=== PATIENT | male | born 1975 | race African-American/Black ===

== ENCOUNTER 2017-07-20 14:22 | Inpatient (IN) | payer OTHER ==
[2017-07-20 15:54] VITALS: BMI 25.0
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
[2017-07-20] MEDS ORDERED: NICOTINE POLACRILEX 2 MG GUM BC PRN (18:10)
[2017-07-20] MEDS ORDERED: MAG HYDROX/AL HYDROX/SIMETH 30 ML UNIT-DOSE CUP PO PRN (18:10)
[2017-07-20] MEDS ORDERED: ACETAMINOPHEN 325 MG TABLET (FP) PO PRN (18:10)
[2017-07-20] MEDS ORDERED: MAGNESIUM HYDROX 2400MG/30ML ORAL SUSPENSION 30 ML CUP PO PRN (18:10)
[2017-07-20] MEDS ORDERED: guaiFENesin/D-METHORPHAN HB 10 ML UNIT-DOSE CUPS PO PRN (18:10)
[2017-07-20] MEDS ORDERED: MAGNESIUM CITRATE 300 ML BOTTLE PO PRN (18:10)
[2017-07-20] MEDS ORDERED: P-EPHED 60MG/TRIPROLIDI 2.5MG TABLET PO PRN (18:10)
[2017-07-20] MEDS ORDERED: LOPERAMIDE HCL 2 MG CAPSULE PO PRN (18:10)
[2017-07-20] MEDS ORDERED: MENTHOL/PHENOL 1 EACH UD MM PRN (18:10)
[2017-07-20] MEDS ORDERED: hydrOXYzine PAMOATE 50 MG CAPSULE (FP) PO PRN (18:10)
[2017-07-20] MEDS ORDERED: IBUPROFEN 400 MG TABLET (FP) PO PRN (18:10)
[2017-07-20] MEDS: THIAMINE HCL 100 MG TABLET (FP) PO SCH (21:49)
[2017-07-20] MEDS ORDERED: MELATONIN 5 MG TABLETS PO PRN (22:00)
[2017-07-20 23:15] LABS: URINE APPEARANCE CLEAR; URINE BILIRUBIN NEGATIVE (<2.0 mg/dL); URINE COLOR DKYELLOW; URINE GLUCOSE (UA) NEGATIVE (NEGATIVE); URINE KETONE NEGATIVE (NEGATIVE); URINE LEUK ESTERASE NEGATIVE (NEGATIVE); URINE NITRITE NEGATIVE (NEGATIVE); URINE PROTEIN NEGATIVE (NEGATIVE)
[2017-07-20] MEDS ORDERED: TUBERCULIN PPD 5 TU/0.1ML VIAL ID ONE (23:57)
[2017-07-21 10:03] LABS: HEMATOCRIT 40.1 % (35.4-49); HEMOGLOBIN 13.4 GM/dL (11.7-16.9); MCH 30.1 pg (25.7-33.7); MCHC 33.5 g/dl (32.0-35.9); MEAN CELL VOLUME 89.7 fl (80-96); PLATELET COUNT 235 K/MM3 (134-434); RBC 4.47 M/mm3 (4.00-5.60); RDW 14.8 % (11.9-15.9); WHITE BLOOD COUNT 4.9 K/mm3 (4.0-10.0)
[2017-07-21 10:13] LABS: CHLORIDE 107 mmol/L (98-107); SODIUM 140 mmol/L (136-145)
[2017-07-21] MEDS: PRENATAL VITAMINS W/ FOLIC ACID TABLET (FP) PO SCH (10:19)
[2017-07-21] MEDS: NICOTINE 14 MG/24 HOURS TOPICAL PATCH TD SCH (10:20)
[2017-07-21 10:36] LABS: ALBUMIN 3.1 g/dl (3.4-5.0); ALK PHOS 46 U/L (45-117); ANION GAP 9 (8-16); BILIRUBIN,TOTAL 0.3 mg/dL (0.2-1.0); BLOOD UREA NITROGEN 15 mg/dL (7-18); CALCIUM 8.4 mg/dL (8.5-10.1); CO2 24 mmol/L (21-32); CREATININE 1.1 mg/dL (0.7-1.3); GLUCOSE,RANDOM 82 mg/dL (74-106); SGOT/AST 18 U/L (15-37); SGPT/ALT 23 U/L (12-78); TOT PROT 5.8 g/dl (6.4-8.2)
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
--- NOTE | 2017-07-21 16:12 | EKG ---
Test Reason : Blood Pressure : / mmHG Vent. Rate : 062 BPM Atrial Rate : 062 BPM P-R Int : 142 ms QRS Dur : 088 ms QT Int : 412 ms P-R-T Axes : 055 045 045 degrees QTc Int : 418 ms NORMAL SINUS RHYTHM NORMAL ECG NO PREVIOUS ECGS AVAILABLE Confirmed by BIB LOONEY MD ([id number]) on 07/21/2017 4:11:51 PM Referred By: Ignacio HANNON Confirmed By:BIB LOONEY MD
[2017-07-21] MEDS: THIAMINE HCL 100 MG TABLET (FP) PO SCH (21:36)
[2017-07-21] MEDS: QUEtiapine FUMARATE 100 MG TABLET (FP) PO SCH (21:36)
[2017-07-22] MEDS: NICOTINE 14 MG/24 HOURS TOPICAL PATCH TD SCH (10:07)
[2017-07-22] MEDS: PRENATAL VITAMINS W/ FOLIC ACID TABLET (FP) PO SCH (10:07)
--- NOTE | 2017-07-22 14:10 | PN ---
[facility] Progress Note Note: Patient presents with c/o cold sweats, tiredness and headache. Vital Signs Temperature 97.8 F 07/22/17 06:48 Pulse Rate 100 H 07/22/17 06:48 Respiratory Rate 18 07/22/17 06:48 Blood Pressure 141/80 07/22/17 06:48 O2 Sat by Pulse Oximetry (%) Laboratory Tests 07/20/17 07/21/17 07/21/17 Unknown 07:00 07:00 WBC 4.9 RBC 4.47 Hgb 13.4 Hct 40.1 MCV 89.7 MCH 30.1 MCHC 33.5 RDW 14.8 Plt Count 235 MPV 9.0 Sodium 140 Potassium 4.0 Chloride 107 Carbon Dioxide 24 Anion Gap 9 BUN 15 Creatinine 1.1 Creat Clearance w eGFR > 60 Random Glucose 82 Calcium 8.4 L Total Bilirubin 0.3 AST 18 ALT 23 Alkaline Phosphatase 46 Total Protein 5.8 L Albumin 3.1 L Urine Color Dkyellow Urine Appearance Clear Urine pH 5.0 Ur Specific [place] 1.032 Urine Protein Negative Urine Glucose (UA) Negative Urine Ketones Negative Urine Blood Negative Urine Nitrite Negative Urine Bilirubin Negative Urine Urobilinogen 2.0 Ur Leukocyte Esterase Negative RPR Titer Hep C Ab Diagnostic Liver Fibrosis Interp HIV 1&2 Antibody Screen HIV P24 Antigen 07/21/17 07/21/17 07/21/17 07:00 07:00 07:00 WBC RBC Hgb Hct MCV MCH MCHC RDW Plt Count MPV Sodium Potassium Chloride Carbon Dioxide Anion Gap BUN Creatinine Creat Clearance w eGFR Random Glucose Calcium Total Bilirubin AST ALT Alkaline Phosphatase Total Protein Albumin Urine Color Urine Appearance Urine pH Ur Specific [place] Urine Protein Urine Glucose (UA) Urine Ketones Urine Blood Urine Nitrite Urine Bilirubin Urine Urobilinogen Ur Leukocyte Esterase RPR Titer Nonreactive Hep C Ab Diagnostic <0.1 Liver Fibrosis Interp HIV 1&2 Antibody Screen Negative HIV P24 Antigen Negative Obj: general: alert and oriented x 3. In no acute distress. Ambulating within unit. In no acute distress. Skin warm and dry. Intact Ext: no edema A/P withdrawal syndrome continue supportive medical management increase oral fluids continue to monitor clinically
[2017-07-22] MEDS: QUEtiapine FUMARATE 100 MG TABLET (FP) PO SCH (21:27)
[2017-07-22] MEDS: THIAMINE HCL 100 MG TABLET (FP) PO SCH (21:27)
[2017-07-23] MEDS: PRENATAL VITAMINS W/ FOLIC ACID TABLET (FP) PO SCH (09:55)
[2017-07-23] MEDS: NICOTINE 14 MG/24 HOURS TOPICAL PATCH TD SCH (09:56)
[2017-07-23] MEDS: QUEtiapine FUMARATE 100 MG TABLET (FP) PO SCH (21:54)
[2017-07-23] MEDS: THIAMINE HCL 100 MG TABLET (FP) PO SCH (21:54)
[2017-07-24 07:09] VITALS: BP 131/93; PULSE 82; TEMP 98.1
[2017-07-24] MEDS: PRENATAL VITAMINS W/ FOLIC ACID TABLET (FP) PO SCH (09:57)
[2017-07-24] MEDS: NICOTINE 14 MG/24 HOURS TOPICAL PATCH TD SCH (09:57)
== END 2017-07-24 10:45 | disposition left against medical advice (07) | DRG 770 ==
LOC: YASAS 14:22 → Y5N 18:35
PROVIDERS: ADMIT Psychiatry & Neurology Psychiatry; ATTEND Psychiatry & Neurology Psychiatry
PROC: HZ42ZZZ Group Counseling for Substance Abuse Treatment, Cognitive-Behavioral (ICD-10-PCS; principal; 2017-07-20)
DX: F11.20 Opioid dependence, uncomplicated (principal); F14.20 Cocaine dependence, uncomplicated; F15.20 Other stimulant dependence, uncomplicated; F17.210 Nicotine dependence, cigarettes, uncomplicated; F31.89 Other bipolar disorder; F43.10 Post-traumatic stress disorder, unspecified; J45.909 Unspecified asthma, uncomplicated; K42.9 Umbilical hernia without obstruction or gangrene; M12.9 Arthropathy, unspecified; R63.4 Abnormal weight loss; Z68.25 Body mass index [BMI] 25.0-25.9, adult; Z91.5 Personal history of self-harm; Z86.19 Personal history of other infectious and parasitic diseases; Z87.438 Personal history of other diseases of male genital organs
CPT/HCPCS: 36415; 80053; 81003; 85027; 86593; 87389; 93005; 93010

== ENCOUNTER 2018-05-08 13:17 | Inpatient (IN) | payer OTHER ==
[2018-05-08 14:43] VITALS: BMI 28.3
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
[2018-05-08] MEDS ORDERED: MAGNESIUM HYDROX 2400MG/30ML ORAL SUSPENSION 30 ML CUP PO PRN (18:30)
[2018-05-08] MEDS ORDERED: IBUPROFEN 400 MG TABLET (FP) PO PRN (18:30)
[2018-05-08] MEDS ORDERED: chlordiazePOXIDE HCL 25 MG CAPSULE PO PRN (18:30)
[2018-05-08] MEDS ORDERED: LOPERAMIDE HCL 2 MG CAPSULE PO PRN (18:30)
[2018-05-08] MEDS ORDERED: chlordiazePOXIDE HCL 25 MG CAPSULE PO ONE (18:30)
[2018-05-08] MEDS ORDERED: MAGNESIUM CITRATE 300 ML BOTTLE PO PRN (18:30)
[2018-05-08] MEDS ORDERED: MENTHOL/PHENOL 1 EACH UD MM PRN (18:30)
[2018-05-08] MEDS ORDERED: ACETAMINOPHEN 325 MG TABLET (FP) PO PRN (18:30)
[2018-05-08] MEDS ORDERED: MAG HYDROX/AL HYDROX/SIMETH 30 ML UNIT-DOSE CUP PO PRN (18:30)
[2018-05-08] MEDS ORDERED: ALBUTEROL SO4 0.083% IH SOL 2.5 MG/3 ML VIAL.NEB. NEB PRN (20:26)
[2018-05-08] MEDS: NICOTINE POLACRILEX 4 MG GUM BC PRN (20:49)
[2018-05-08] MEDS ORDERED: MELATONIN 5 MG TABLETS PO PRN ×2 (22:00)
[2018-05-08] MEDS: THIAMINE HCL 100 MG TABLET (FP) PO SCH (22:07)
[2018-05-08] MEDS: chlordiazePOXIDE HCL 25 MG CAPSULE PO SCH (22:08)
[2018-05-08] MEDS: TOLNAFTATE 1% CREAM 15 GM TUBE TP SCH (22:09)
[2018-05-09] MEDS: chlordiazePOXIDE HCL 25 MG CAPSULE PO SCH ×4 (06:43→22:31)
[2018-05-09] MEDS: NICOTINE 21 MG/24 HOURS TOPICAL PATCH TD SCH (10:18)
[2018-05-09] MEDS: TOLNAFTATE 1% CREAM 15 GM TUBE TP SCH ×2 (10:18→23:32)
[2018-05-09] MEDS: PRENATAL VITAMINS W/ FOLIC ACID TABLET (FP) PO SCH (10:18)
[2018-05-09] MEDS ORDERED: CYCLOBENZAPRINE HCL 10 MG TABLET (FP) PO PRN (11:55)
[2018-05-09 12:35] LABS: HEMATOCRIT 41.1 % (35.4-49); HEMOGLOBIN 13.8 GM/dL (11.7-16.9); MCHC 33.6 g/dl (32.0-35.9); MEAN CELL VOLUME 89.3 fl (80-96); MEAN PLT VOLUME 8.3 fl (7.5-11.1); PLATELET COUNT 264 K/MM3 (134-434); RDW 15.6 % (11.9-15.9); WHITE BLOOD COUNT 5.2 K/mm3 (4.0-10.0)
[2018-05-09 12:44] LABS: ALBUMIN 3.4 g/dl (3.4-5.0); ALK PHOS 56 U/L (45-117); ANION GAP 7 MMOL/L (8-16); BILIRUBIN,TOTAL 0.2 mg/dL (0.2-1); BLOOD UREA NITROGEN 23 mg/dL (7-18); CALCIUM 8.6 mg/dL (8.5-10.1); CHLORIDE 105 mmol/L (98-107); CO2 27 mmol/L (21-32); CREATININE 1.2 mg/dL (0.55-1.3); GLUCOSE,RANDOM 102 mg/dL (74-106); POTASSIUM 3.9 mmol/L (3.5-5.1); SGOT/AST 22 U/L (15-37); SGPT/ALT 29 U/L (13-61); SODIUM 139 mmol/L (136-145); TOT PROT 6.5 g/dl (6.4-8.2)
[2018-05-09 12:47] LABS: URINE APPEARANCE CLEAR; URINE BILIRUBIN NEGATIVE (<2.0 mg/dL); URINE COLOR YELLOW; URINE GLUCOSE (UA) NEGATIVE (NEGATIVE); URINE KETONE NEGATIVE (NEGATIVE); URINE LEUK ESTERASE TRACE (NEGATIVE); URINE NITRITE NEGATIVE (NEGATIVE); URINE PROTEIN NEGATIVE (NEGATIVE)
[2018-05-09 13:13] LABS: EPI CELLS RARE /HPF (FEW); URINE MUCUS RARE
--- NOTE | 2018-05-09 13:18 | PN ---
S CIWA - CIWA Score Nausea/Vomitin-No Nausea/No Vomiting Muscle Tremors: 3 Anxiety: 1-Mildly Anxious Agitation: 0-Normal Activity Paroxysmal Sweats: 3 Orientation: 2-Disoriented Date<2 days Tacttile Disturbances: 2-Mild Itch/Numbness/Burn Auditory Disturbances: 0-None Visual Disturbances: 0-None Headache: 3-Moderate CIWA-Ar Total Score: 14 S Progress Note (SOAP) Subjective: Tremors, H/A, Body Aches, Sweating, Interrupted Sleep. Objective: PATIENT A & O X 2 (UNCERTAIN ABOUT CURRENT DAY / DATE). PATIENT OBSERVED AMBULATING ON UNIT. IN NO ACUTE DISTRESS. 05/09/18 13:17 Vital Signs Temperature 98.1 F 05/09/18 09:59 Pulse Rate 86 05/09/18 09:59 Respiratory Rate 18 05/09/18 09:59 Blood Pressure 121/60 05/09/18 09:59 O2 Sat by Pulse Oximetry (%) Laboratory Tests 05/09/18 05/09/18 05/09/18 07:00 07:00 07:00 WBC 5.2 RBC 4.60 Hgb 13.8 Hct 41.1 MCV 89.3 MCH 30.0 MCHC 33.6 RDW 15.6 Plt Count 264 MPV 8.3 Sodium 139 Potassium 3.9 Chloride 105 Carbon Dioxide 27 Anion Gap 7 L BUN 23 H Creatinine 1.2 Creat Clearance w eGFR > 60 Random Glucose 102 Calcium 8.6 Total Bilirubin 0.2 AST 22 ALT 29 Alkaline Phosphatase 56 Total Protein 6.5 Albumin 3.4 Urine Color Urine Appearance Urine pH Ur Specific [place] Urine Protein Urine Glucose (UA) Urine Ketones Urine Blood Urine Nitrite Urine Bilirubin Urine Urobilinogen Ur Leukocyte Esterase Urine WBC (Auto) Urine RBC (Auto) Ur Epithelial Cells Urine Mucus RPR Titer HIV 1&2 Antibody Screen Negative HIV P24 Antigen Negative 05/09/18 05/09/18 07:00 09:30 WBC RBC Hgb Hct MCV MCH MCHC RDW Plt Count MPV Sodium Potassium Chloride Carbon Dioxide Anion Gap BUN Creatinine Creat Clearance w eGFR Random Glucose Calcium Total Bilirubin AST ALT Alkaline Phosphatase Total Protein Albumin Urine Color Yellow Urine Appearance Clear Urine pH 6.0 Ur Specific [place] 1.031 Urine Protein Negative Urine Glucose (UA) Negative Urine Ketones Negative Urine Blood Negative Urine Nitrite Negative Urine Bilirubin Negative Urine Urobilinogen 2.0 Ur Leukocyte Esterase Trace Urine WBC (Auto) 4 Urine RBC (Auto) 1 Ur Epithelial Cells Rare Urine Mucus Rare RPR Titer Nonreactive HIV 1&2 Antibody Screen HIV P24 Antigen LABS NOTED. Assessment: 05/09/18 13:17 WITHDRAWAL SYMPTOMS. Plan: CONTINUE DETOX. INCREASE DAILY PO FLUID INTAKE.
[2018-05-09] MEDS: NICOTINE POLACRILEX 4 MG GUM BC PRN ×2 (17:32→22:32)
[2018-05-09] MEDS: THIAMINE HCL 100 MG TABLET (FP) PO SCH (22:31)
[2018-05-10] MEDS: chlordiazePOXIDE HCL 25 MG CAPSULE PO SCH ×3 (06:52→18:54)
[2018-05-10] MEDS: NICOTINE 21 MG/24 HOURS TOPICAL PATCH TD SCH (10:24)
[2018-05-10] MEDS: TOLNAFTATE 1% CREAM 15 GM TUBE TP SCH ×2 (10:25→23:20)
[2018-05-10] MEDS: PRENATAL VITAMINS W/ FOLIC ACID TABLET (FP) PO SCH (10:25)
[2018-05-10] MEDS: NICOTINE POLACRILEX 4 MG GUM BC PRN ×3 (10:26→22:20)
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
[2018-05-10] MEDS: chlordiazePOXIDE 5 MG CAPSULE PO SCH (22:19)
[2018-05-10] MEDS: THIAMINE HCL 100 MG TABLET (FP) PO SCH (22:20)
[2018-05-10] MEDS: DOCUSATE SODIUM 100 MG CAPSULE (FP) PO SCH (22:20)
[2018-05-11] MEDS: DOCUSATE SODIUM 100 MG CAPSULE (FP) PO SCH ×2 (06:10→14:17)
[2018-05-11] MEDS: chlordiazePOXIDE 5 MG CAPSULE PO SCH ×3 (06:10→17:35)
[2018-05-11] MEDS: PRENATAL VITAMINS W/ FOLIC ACID TABLET (FP) PO SCH (10:17)
[2018-05-11] MEDS: NICOTINE POLACRILEX 4 MG GUM BC PRN (10:17)
[2018-05-11] MEDS: NICOTINE 21 MG/24 HOURS TOPICAL PATCH TD SCH (10:17)
[2018-05-11] MEDS: TOLNAFTATE 1% CREAM 15 GM TUBE TP SCH (10:17)
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
[2018-05-11 13:16] VITALS: BP 133/83; PULSE 39; TEMP 97.3
--- NOTE | 2018-05-11 13:43 | PN ---
[facility] Progress Note (SOAP) Subjective: Sweating, Body Aches. Objective: PATIENT A & O X 3, OBSERVED AMBULATING ON UNIT. IN NO ACUTE DISTRESS. 05/11/18 13:44 Vital Signs Temperature 97.3 F L 05/11/18 13:15 Pulse Rate 39 L 05/11/18 13:15 Respiratory Rate 18 05/11/18 13:15 Blood Pressure 133/83 05/11/18 13:15 O2 Sat by Pulse Oximetry (%) Laboratory Tests 05/09/18 05/09/18 05/09/18 07:00 07:00 07:00 WBC 5.2 RBC 4.60 Hgb 13.8 Hct 41.1 MCV 89.3 MCH 30.0 MCHC 33.6 RDW 15.6 Plt Count 264 MPV 8.3 Sodium 139 Potassium 3.9 Chloride 105 Carbon Dioxide 27 Anion Gap 7 L BUN 23 H Creatinine 1.2 Creat Clearance w eGFR > 60 Random Glucose 102 Calcium 8.6 Total Bilirubin 0.2 AST 22 ALT 29 Alkaline Phosphatase 56 Total Protein 6.5 Albumin 3.4 Urine Color Urine Appearance Urine pH Ur Specific [place] Urine Protein Urine Glucose (UA) Urine Ketones Urine Blood Urine Nitrite Urine Bilirubin Urine Urobilinogen Ur Leukocyte Esterase Urine WBC (Auto) Urine RBC (Auto) Ur Epithelial Cells Urine Mucus RPR Titer HIV 1&2 Antibody Screen Negative HIV P24 Antigen Negative 05/09/18 05/09/18 07:00 09:30 WBC RBC Hgb Hct MCV MCH MCHC RDW Plt Count MPV Sodium Potassium Chloride Carbon Dioxide Anion Gap BUN Creatinine Creat Clearance w eGFR Random Glucose Calcium Total Bilirubin AST ALT Alkaline Phosphatase Total Protein Albumin Urine Color Yellow Urine Appearance Clear Urine pH 6.0 Ur Specific [place] 1.031 Urine Protein Negative Urine Glucose (UA) Negative Urine Ketones Negative Urine Blood Negative Urine Nitrite Negative Urine Bilirubin Negative Urine Urobilinogen 2.0 Ur Leukocyte Esterase Trace Urine WBC (Auto) 4 Urine RBC (Auto) 1 Ur Epithelial Cells Rare Urine Mucus Rare RPR Titer Nonreactive HIV 1&2 Antibody Screen HIV P24 Antigen LABS NOTED. Assessment: 05/11/18 13:44 WITHDRAWAL SYMPTOMS. Plan: CONTINUE DETOX. PATIENT TO BE SENT VIA AMBULANCE TO [facility] FOR REPORT OF BLOOD IN STOOL. SEE FOLLOWING [facility] PROGRESS NOTE.
--- NOTE | 2018-05-11 13:49 | PN ---
[facility] Progress Note Note: PATIENT REPORTS CARRIE THE HAS NOTICED APPEARANCE OF BLOOD (BRIGHT RED) BLOOD IN STOOL X APPROX. 1 WEEK. PATIENT HAD REPORTED THIS OCCURRENCE TO BUSINESS INVESTOR YESTERDAY AND BUSINESS INVESTOR OFFERED PATIENT OPPORTUNITY TO BE TAKEN VIA AMBULANCE TO [facility] YESTERDAY FOR FURTHER MEDICAL EVALUATION. HOWEVER, PATIENT DECLINED TO DO SO AT THAT TIME, NOTING THAT HE WOULD FOLLOW-UP WITH QUALITY CONTROL MANAGER DR. Elvia BIRD ([place], [place]) AFTER DISCHARGE FROM DETOX UNIT FOR FURTHER MEDICAL EVALUATION. WHEN ASKED ABOUT GOING TO ER AGAIN TODAY, PATIENT RESPONDED THAT HE IS WILLING TO GO FOR MEDICAL EVALUATION TODAY. PATIENT ALSO REPORTS FEELING OF "SORENESS" CONCENTRATED IN LOWER RIGHT FLANK AREA, JUST INFERIOR TO RIGHT RIBCAGE. ACCORDING TO PATIENT, SORENESS IS 7/10 ON PAIN SCALE AND IS GENERALLY MORE PRONOUNCED IN AM AND TENDS TO SUBSIDE DAY GOERS ON. PATIENT ALSO REPORTS THAT HE SOMETIMES FEELS IF HE HAS TO STRAIN TO HAVE A BOWEL MOVEMENT. PATIENT REPORTS THAT SIMILAR SET OF SYMPTOMS HAS OCCURRED IN THE PAST AND THAT THE SYMPTOMS GRADUALLY RESOLVED OIN THEIR OWN WITHOUT ANY MEDICAL INTERVENTION. NO SWELLING, ERYTHEMA, WOUNDS, DISCOLORATION, OR UNUSUAL DISCHARGE NOTED IN LOWER RIGHT ABDOMINAL / LOWER RIBCAGE AREAS. NO TENDERNESS ELICITED UPON PALPATION OF LOWER RIGHT ABDOMINAL / LOWER RIBCAGE AREAS. ANEMIA NOT NOTED ON DETOX ADMISSION CBC. REPORT GIVEN TO DR. GARCIA AT [facility]. PATIENT TO BE TAKEN VIA AMBULANCE TO [facility] FOR FURTHER MEDICAL EVALUATION. Griffin SHARP NP
[2018-05-11] MEDS ORDERED: QUEtiapine FUMARATE 50 MG TABLET PO SCH (22:00)
--- NOTE | 2018-05-11 22:03 | PN ---
[facility] Progress Note Note: RETURNS FROM HOSPITAL AFTR BEING CLEARED FOR A COMPLAINT EARLIER OF RECTAL BLEEDING. CLIENT REFUSED EXAM WHILE THERE BUT H/H WAS STABLE. HE NOW RETURNS AND IS REQUESTING TO SIGN OUT AMA. HE DOES NOT WANT TO DISCUSS HIS REASON. HE STATES " I JUST DONT WANT TO BE HERE ANY LONGER" . ALL ATTEMPTS TO ENCOURAGE CLIENT TO CONTINUE TREAT WAS TO NO AVAIL. RISKS INVOLVED IN ABRUPTING TXMENT DISCUSSED WITH CLIENT TO INCLUDE SEIZURE AND . CLIENT WAS VERY DISMISSIVE OF THE PEGGER BUT STATED "YEAH I KNOW ALL THAT, I JUST WANT MY STUFF" CLIENT IS A/O X3 NAD, SIGNED OUT AMA.
[2018-05-11] MEDS ORDERED: chlordiazePOXIDE HCL 10 MG CAPSULE PO SCH (23:00)
--- NOTE | 2018-05-12 08:12 | DS ---
[facility] Detox Discharge Summary Admission Date: 05/08/18 Discharge Date: 05/11/18 - History Present History: Alcohol Dependence, Cannabis Dependence, Cocaine Dependence, Sedative Dependence Additional Comments: DURING ADMISSION STAY DX: TINEA PEDIS RECTAL BLEEDING (CHRONIC). TRANSFERRED TO [facility] - MEDICALLY CLEARED AND RETURNED TO [facility] FOR CONTINUATION OF TXMENT. Pertinent Past History: NICOTINE DEP ASTHMA PTSD - Physical Exam Results Vital Signs: Vital Signs Temperature 97.3 F L 05/11/18 13:15 Pulse Rate 39 L 05/11/18 13:15 Respiratory Rate 18 05/11/18 13:15 Blood Pressure 133/83 05/11/18 13:15 O2 Sat by Pulse Oximetry (%) Pertinent Admission Physical Exam Findings: WITHDRAWAL SX'S Laboratory Tests 05/09/18 05/09/18 05/09/18 07:00 07:00 07:00 WBC 5.2 RBC 4.60 Hgb 13.8 Hct 41.1 MCV 89.3 MCH 30.0 MCHC 33.6 RDW 15.6 Plt Count 264 MPV 8.3 Sodium 139 Potassium 3.9 Chloride 105 Carbon Dioxide 27 Anion Gap 7 L BUN 23 H Creatinine 1.2 Creat Clearance w eGFR > 60 Random Glucose 102 Calcium 8.6 Total Bilirubin 0.2 AST 22 ALT 29 Alkaline Phosphatase 56 Total Protein 6.5 Albumin 3.4 Urine Color Urine Appearance Urine pH Ur Specific [place] Urine Protein Urine Glucose (UA) Urine Ketones Urine Blood Urine Nitrite Urine Bilirubin Urine Urobilinogen Ur Leukocyte Esterase Urine WBC (Auto) Urine RBC (Auto) Ur Epithelial Cells Urine Mucus RPR Titer HIV 1&2 Antibody Screen Negative HIV P24 Antigen Negative 05/09/18 05/09/18 07:00 09:30 WBC RBC Hgb Hct MCV MCH MCHC RDW Plt Count MPV Sodium Potassium Chloride Carbon Dioxide Anion Gap BUN Creatinine Creat Clearance w eGFR Random Glucose Calcium Total Bilirubin AST ALT Alkaline Phosphatase Total Protein Albumin Urine Color Yellow Urine Appearance Clear Urine pH 6.0 Ur Specific [place] 1.031 Urine Protein Negative Urine Glucose (UA) Negative Urine Ketones Negative Urine Blood Negative Urine Nitrite Negative Urine Bilirubin Negative Urine Urobilinogen 2.0 Ur Leukocyte Esterase Trace Urine WBC (Auto) 4 Urine RBC (Auto) 1 Ur Epithelial Cells Rare Urine Mucus Rare RPR Titer Nonreactive HIV 1&2 Antibody Screen HIV P24 Antigen - Treatment Hospital Course: Discharged Condition Good Patient has Accepted a Rehab Referral to: DECLINED ALL REFERRALS - Medication Discharge Medications: Ambulatory Orders NK [No Known Home Medication] 07/20/17 - Diagnosis (1) Alcohol dependence with uncomplicated withdrawal Status: Acute (2) Rectal bleed Status: Acute (3) Sedative, hypnotic or anxiolytic dependence with withdrawal, uncomplicated Status: Acute (4) Tinea pedis Status: Acute Qualifiers: Laterality: bilateral Qualified Code(s): B35.3 - Tinea pedis (5) Asthma Status: Chronic Qualifiers: Asthma severity: mild Asthma persistence: unspecified Asthma complication type: unspecified Qualified Code(s): J45.909 - Unspecified asthma , uncomplicated (6) Cannabis dependence, uncomplicated Status: Chronic (7) Cocaine dependence Status: Chronic Qualifiers: Substance use status: uncomplicated Qualified Code(s): F14.20 - Cocaine dependence, uncomplicated (8) History of asthma Status: Chronic (9) Mood disorder Status: Chronic (10) Nicotine dependence Status: Chronic Qualifiers: Nicotine product type: cigarettes Substance use status: uncomplicated Qualified Code(s): F17.210 - Nicotine dependence, cigarettes, uncomplicated (11) Opioid use disorder, moderate, in early remission, dependence Status: Chronic (12) PTSD (post-traumatic stress disorder) Status: Chronic - AMA Did Patient Leave Against Medical Advice: Yes
== END 2018-05-11 22:21 | disposition left against medical advice (07) | DRG 770 ==
LOC: YASAS 13:17 → Y6N 17:23
PROVIDERS: ADMIT Surgery; ATTEND Surgery
PROC: HZ2ZZZZ Detoxification Services for Substance Abuse Treatment (ICD-10-PCS; principal; 2018-05-08)
DX: F10.230 Alcohol dependence with withdrawal, uncomplicated (principal); F13.230 Sedative, hypnotic or anxiolytic dependence with withdrawal, uncomplicated; F14.20 Cocaine dependence, uncomplicated; F12.20 Cannabis dependence, uncomplicated; F11.21 Opioid dependence, in remission; F17.210 Nicotine dependence, cigarettes, uncomplicated; F31.9 Bipolar disorder, unspecified; F43.10 Post-traumatic stress disorder, unspecified; F39 Unspecified mood [affective] disorder; J45.909 Unspecified asthma, uncomplicated; B35.3 Tinea pedis; K62.5 Hemorrhage of anus and rectum; Z91.013 Allergy to seafood; Z88.8 Allergy status to other drugs, medicaments and biological substances; Z91.5 Personal history of self-harm
CPT/HCPCS: 36415; 80053; 81003; 81015; 85027; 86593; 87389

== ENCOUNTER 2018-05-11 14:25 | Emergency (ER) | payer OTHER ==
[2018-05-11 14:46] VITALS: BP 150/80; PULSE 84; TEMP 98; BMI 26.4
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
[2018-05-11 16:45] LABS: HEMATOCRIT 43.8 % (35.4-49); LYMPH % 51.3 % (8-40); MCH 30.4 pg (25.7-33.7); MCHC 34.2 g/dl (32.0-35.9); MEAN CELL VOLUME 88.8 fl (80-96); MEAN PLT VOLUME 7.9 fl (7.5-11.1); MONO % 8.4 % (3.8-10.2); NEUT % 37.3 % (42.8-82.8); PLATELET COUNT 269 K/MM3 (134-434); RBC 4.93 M/mm3 (4.00-5.60); RDW 15.5 % (11.9-15.9); WHITE BLOOD COUNT 5.4 K/mm3 (4.0-10.0)
[2018-05-11 17:01] LABS: INR 0.85 (0.83-1.09)
[2018-05-11 17:04] LABS: ACTIVATED PTT 27.6 SECONDS (25.2-36.5)
[2018-05-11 17:20] LABS: ALBUMIN 3.5 g/dl (3.4-5.0); ALK PHOS 57 U/L (45-117); ANION GAP 6 MMOL/L (8-16); BILIRUBIN,TOTAL 0.2 mg/dL (0.2-1); BLOOD UREA NITROGEN 15 mg/dL (7-18); CALCIUM 8.8 mg/dL (8.5-10.1); CHLORIDE 104 mmol/L (98-107); CO2 25 mmol/L (21-32); CREATININE 1.1 mg/dL (0.55-1.3); GLUCOSE,RANDOM 98 mg/dL (74-106); SGOT/AST 8 U/L (15-37); SGPT/ALT 41 U/L (13-61); SODIUM 135 mmol/L (136-145); TOT PROT 7.2 g/dl (6.4-8.2)
== END 2018-05-11 21:34 | disposition home or self-care (01) ==
LOC: JER 14:25
DX: K62.5 Hemorrhage of anus and rectum (principal); F11.20 Opioid dependence, uncomplicated; F10.20 Alcohol dependence, uncomplicated; F14.20 Cocaine dependence, uncomplicated; F15.20 Other stimulant dependence, uncomplicated; F17.200 Nicotine dependence, unspecified, uncomplicated; F43.10 Post-traumatic stress disorder, unspecified; F32.9 Major depressive disorder, single episode, unspecified; Z91.5 Personal history of self-harm
CPT/HCPCS: 36415; 80053; 85025; 85610; 85730; 86850; 86900; 86901; 99282-25

== ENCOUNTER 2018-07-27 17:44 | Inpatient (IN) | payer OTHER ==
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
[2018-07-27] MEDS ORDERED: MAGNESIUM CITRATE 300 ML BOTTLE PO PRN (21:40)
[2018-07-27] MEDS ORDERED: MENTHOL/PHENOL 1 EACH UD MM PRN (21:40)
[2018-07-27] MEDS ORDERED: chlordiazePOXIDE HCL 25 MG CAPSULE PO ONE (21:40)
[2018-07-27] MEDS ORDERED: chlordiazePOXIDE HCL 10 MG CAPSULE PO PRN (21:40)
[2018-07-27] MEDS ORDERED: MELATONIN 5 MG TABLETS PO PRN (21:40)
[2018-07-27] MEDS ORDERED: MAG HYDROX/AL HYDROX/SIMETH 30 ML UNIT-DOSE CUP PO PRN (21:40)
[2018-07-27] MEDS ORDERED: BISMUTH SUBSALICYLATE 524 MG/30 ML UD PO PRN (21:40)
[2018-07-27] MEDS ORDERED: ACETAMINOPHEN 325 MG TABLET (FP) PO PRN ×2 (21:40)
[2018-07-27] MEDS ORDERED: QUEtiapine FUMARATE 100 MG TABLET (FP) PO ONE (22:00)
[2018-07-27] MEDS ORDERED: buPROPion HCL 100 MG TABLET PO ONE (22:00)
[2018-07-27] MEDS: AMOXICILLIN 500 MG CAPSULE (FP) PO SCH (23:06)
[2018-07-27] MEDS: guaiFENesin 200 MG/10 ML 10 ML UNIT-DOSE CUPS PO SCH (23:10)
[2018-07-27] MEDS: chlordiazePOXIDE HCL 25 MG CAPSULE PO SCH ×2 (23:10→23:24)
[2018-07-27] MEDS: HYDROCORTISONE 1% TOPICAL CREAM 30 GM TUBE TP SCH (23:13)
[2018-07-27] MEDS: THIAMINE HCL 100 MG TABLET (FP) PO SCH (23:14)
[2018-07-27] MEDS: TOLNAFTATE 1% CREAM 15 GM TUBE TP SCH (23:14)
[2018-07-27] MEDS: ALBUTEROL SO4 0.083% IH SOL 2.5 MG/3 ML VIAL.NEB. NEB SCH (23:14)
[2018-07-28] MEDS: guaiFENesin 200 MG/10 ML 10 ML UNIT-DOSE CUPS PO SCH ×4 (05:56→21:08)
[2018-07-28] MEDS: AMOXICILLIN 500 MG CAPSULE (FP) PO SCH ×3 (05:58→21:08)
[2018-07-28] MEDS: chlordiazePOXIDE 5 MG CAPSULE PO SCH ×3 (05:58→21:30)
[2018-07-28] MEDS: HYDROCORTISONE 1% TOPICAL CREAM 30 GM TUBE TP SCH ×3 (06:01→21:11)
[2018-07-28 08:43] LABS: URINE APPEARANCE CLEAR; URINE BILIRUBIN NEGATIVE (NEGATIVE); URINE COLOR YELLOW; URINE GLUCOSE (UA) NEGATIVE (NEGATIVE); URINE KETONE NEGATIVE (NEGATIVE); URINE LEUK ESTERASE NEGATIVE (NEGATIVE); URINE NITRITE NEGATIVE (NEGATIVE); URINE PROTEIN TRACE (NEGATIVE); URINE UROBILINOGEN 0.2 mg/dL (0.2-1.0)
[2018-07-28 10:04] LABS: HEMATOCRIT 43.4 % (35.4-49); MCH 28.8 pg (25.7-33.7); MCHC 32.3 g/dl (32.0-35.9); MEAN CELL VOLUME 89.2 fl (80-96); MEAN PLT VOLUME 8.2 fl (7.5-11.1); PLATELET COUNT 317 K/MM3 (134-434); RBC 4.87 M/mm3 (4.00-5.60); RDW 14.6 % (11.9-15.9); WHITE BLOOD COUNT 4.6 K/mm3 (4.0-10.0)
[2018-07-28 10:20] LABS: ALBUMIN 3.4 g/dl (3.4-5.0); BILIRUBIN,TOTAL 0.2 mg/dL (0.2-1); CALCIUM 9.2 mg/dL (8.5-10.1); CREATININE 1.1 mg/dL (0.55-1.3); POTASSIUM 4.6 mmol/L (3.5-5.1); TOT PROT 7.2 g/dl (6.4-8.2)
[2018-07-28] MEDS: PRENATAL VITAMINS W/ FOLIC ACID TABLET (FP) PO SCH (10:29)
[2018-07-28] MEDS: NICOTINE 21 MG/24 HOURS TOPICAL PATCH TD SCH (10:29)
[2018-07-28] MEDS: TOLNAFTATE 1% CREAM 15 GM TUBE TP SCH ×2 (10:31→21:08)
[2018-07-28] MEDS: NICOTINE POLACRILEX 4 MG GUM BUC PRN ×2 (10:31→19:35)
[2018-07-28] MEDS: ALBUTEROL SO4 0.083% IH SOL 2.5 MG/3 ML VIAL.NEB. NEB SCH ×2 (10:35→21:51)
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
--- NOTE | 2018-07-28 11:05 | PN ---
S CIWA - CIWA Score Nausea/Vomitin-No Nausea/No Vomiting Muscle Tremors: 2 Anxiety: 2 Agitation: 2 Paroxysmal Sweats: 2 Orientation: 0-Oriented Tacttile Disturbances: 0-None Auditory Disturbances: 0-None Visual Disturbances: 0-None Headache: 0-None Present CIWA-Ar Total Score: 8 BHS Progress Note (SOAP) Subjective: little sweats sleepy Objective: 07/28/18 11:04 Vital Signs Temperature 98.2 F 07/28/18 09:14 Pulse Rate 99 H 07/28/18 09:14 Respiratory Rate 18 07/28/18 09:14 Blood Pressure 129/76 07/28/18 09:14 O2 Sat by Pulse Oximetry (%) Laboratory Tests 07/27/18 07/28/18 07/28/18 22:32 07:00 07:00 WBC 4.6 RBC 4.87 Hgb 14.0 Hct 43.4 MCV 89.2 MCH 28.8 MCHC 32.3 RDW 14.6 Plt Count 317 MPV 8.2 Sodium 136 Potassium 4.6 Chloride 103 Carbon Dioxide 26 Anion Gap 7 L BUN 22 H Creatinine 1.1 Est GFR (CKD-EPI)AfAm 96.13 Est GFR (CKD-EPI)NonAf 82.94 Random Glucose 100 Calcium 9.2 Total Bilirubin 0.2 AST 29 ALT 61 Alkaline Phosphatase 65 Total Protein 7.2 Albumin 3.4 Urine Color Yellow Urine Appearance Clear Urine pH 7.0 Ur Specific [place] 1.032 Urine Protein Trace Urine Glucose (UA) Negative Urine Ketones Negative Urine Blood Negative Urine Nitrite Negative Urine Bilirubin Negative Urine Urobilinogen 0.2 Ur Leukocyte Esterase Negative labs noted aaox3 ambulating no acute distress Assessment: 07/28/18 11:05 mild withdrawal sx Plan: continue detox increase fluids d/c on tuesday
[2018-07-28] MEDS: BUPRENORPHINE/NALOXONE 8 MG/2 MG FILM PACKET SL SCH (11:57)
--- NOTE | 2018-07-28 13:38 | EKG ---
Test Reason : Blood Pressure : / mmHG Vent. Rate : 061 BPM Atrial Rate : 061 BPM P-R Int : 162 ms QRS Dur : 082 ms QT Int : 414 ms P-R-T Axes : 059 053 044 degrees QTc Int : 416 ms NORMAL SINUS RHYTHM NORMAL ECG WHEN COMPARED WITH ECG OF 21-JUL-2017 14:00, NO SIGNIFICANT CHANGE WAS FOUND Confirmed by JESSICA JUAREZ MD ([id number]) on 07/28/2018 1:37:58 PM Referred By: FAYE MURCIA Confirmed By:JESSICA JUAREZ MD
[2018-07-28] MEDS: MAGNESIUM HYDROX 2400MG/30ML ORAL SUSPENSION 30 ML CUP PO PRN (19:31)
[2018-07-28] MEDS: THIAMINE HCL 100 MG TABLET (FP) PO SCH (21:08)
[2018-07-28] MEDS: QUEtiapine FUMARATE 100 MG TABLET (FP) PO SCH (22:17)
[2018-07-29] MEDS: guaiFENesin 200 MG/10 ML 10 ML UNIT-DOSE CUPS PO SCH ×4 (02:57→22:24)
[2018-07-29] MEDS ORDERED: chlordiazePOXIDE HCL 10 MG CAPSULE PO PRN (05:00)
[2018-07-29] MEDS: chlordiazePOXIDE HCL 10 MG CAPSULE PO SCH ×3 (05:26→22:24)
[2018-07-29] MEDS: AMOXICILLIN 500 MG CAPSULE (FP) PO SCH ×3 (05:26→22:23)
[2018-07-29] MEDS: HYDROCORTISONE 1% TOPICAL CREAM 30 GM TUBE TP SCH ×3 (05:28→22:24)
[2018-07-29] MEDS: MAGNESIUM HYDROX 2400MG/30ML ORAL SUSPENSION 30 ML CUP PO PRN (05:52)
[2018-07-29] MEDS: IBUPROFEN 400 MG TABLET (FP) PO PRN ×2 (07:11→18:56)
[2018-07-29] MEDS: PRENATAL VITAMINS W/ FOLIC ACID TABLET (FP) PO SCH (10:27)
[2018-07-29] MEDS: NICOTINE 21 MG/24 HOURS TOPICAL PATCH TD SCH (10:27)
[2018-07-29] MEDS: BUPRENORPHINE/NALOXONE 8 MG/2 MG FILM PACKET SL SCH (10:27)
[2018-07-29] MEDS: ALBUTEROL SO4 0.083% IH SOL 2.5 MG/3 ML VIAL.NEB. NEB SCH ×2 (10:28→22:25)
[2018-07-29] MEDS: TOLNAFTATE 1% CREAM 15 GM TUBE TP SCH ×2 (10:28→22:25)
--- NOTE | 2018-07-29 10:54 | PN ---
S CIWA - CIWA Score Nausea/Vomitin-No Nausea/No Vomiting Muscle Tremors: 2 Anxiety: 2 Agitation: 2 Paroxysmal Sweats: 2 Orientation: 0-Oriented Tacttile Disturbances: 0-None Auditory Disturbances: 0-None Visual Disturbances: 0-None Headache: 2-Mild CIWA-Ar Total Score: 10 BHS Progress Note (SOAP) Subjective: c/o sweats, body aches, headache, anxiety, and mild tremor. Objective: 07/29/18 10:53 Vital Signs 07/29/18 07/29/18 06:00 09:27 Temperature 97.7 F 98.0 F Pulse Rate 81 76 Respiratory 18 18 Rate Blood Pressure 137/77 129/86 Assessment: 07/29/18 10:53 AOX3, in no acute distress. full rom, ambulating in the unit. withdrawal symptoms persists. Plan: continue detox increase fluids
[2018-07-29] MEDS: NICOTINE POLACRILEX 4 MG GUM BUC PRN (11:04)
[2018-07-29] MEDS: METHOCARBAMOL 500 MG TABLET PO PRN (17:11)
[2018-07-29] MEDS: QUEtiapine FUMARATE 100 MG TABLET (FP) PO SCH (22:23)
[2018-07-29] MEDS: THIAMINE HCL 100 MG TABLET (FP) PO SCH (22:24)
[2018-07-30] MEDS ORDERED: ALBUTEROL SO4 2.5/IPRATROPIUM 0.5 INH SOL 3 ML VIAL.NEB. NEB PRN (01:43)
[2018-07-30] MEDS: chlordiazePOXIDE HCL 10 MG CAPSULE PO SCH (05:16)
[2018-07-30] MEDS: AMOXICILLIN 500 MG CAPSULE (FP) PO SCH ×3 (05:16→22:23)
[2018-07-30] MEDS: HYDROCORTISONE 1% TOPICAL CREAM 30 GM TUBE TP SCH ×3 (05:17→22:25)
[2018-07-30] MEDS: NICOTINE 21 MG/24 HOURS TOPICAL PATCH TD SCH (10:19)
[2018-07-30] MEDS: TOLNAFTATE 1% CREAM 15 GM TUBE TP SCH ×2 (10:19→22:25)
[2018-07-30] MEDS: BUPRENORPHINE/NALOXONE 8 MG/2 MG FILM PACKET SL SCH (10:19)
[2018-07-30] MEDS: PRENATAL VITAMINS W/ FOLIC ACID TABLET (FP) PO SCH (11:27)
--- NOTE | 2018-07-30 16:18 | PN ---
S CIWA - CIWA Score Nausea/Vomitin-No Nausea/No Vomiting Muscle Tremors: 2 Anxiety: 1-Mildly Anxious Agitation: 1-Slight > Activity Paroxysmal Sweats: 2 Orientation: 0-Oriented Tacttile Disturbances: 0-None Auditory Disturbances: 0-None Visual Disturbances: 0-None Headache: 0-None Present CIWA-Ar Total Score: 6 BHS Progress Note (SOAP) Subjective: Sweating, interrupted sleep Objective: 07/30/18 16:16 Last Vital Signs Temp Pulse Resp BP Pulse Ox 98.2 F 67 16 123/70 98 07/30/18 14:24 07/30/18 14:24 07/30/18 14:24 07/30/18 14:24 07/29/18 10:58 Laboratory Tests 07/27/18 07/28/18 07/28/18 22:32 07:00 07:00 WBC 4.6 RBC 4.87 Hgb 14.0 Hct 43.4 MCV 89.2 MCH 28.8 MCHC 32.3 RDW 14.6 Plt Count 317 MPV 8.2 Sodium 136 Potassium 4.6 Chloride 103 Carbon Dioxide 26 Anion Gap 7 L BUN 22 H Creatinine 1.1 Est GFR (CKD-EPI)AfAm 96.13 Est GFR (CKD-EPI)NonAf 82.94 Random Glucose 100 Calcium 9.2 Total Bilirubin 0.2 AST 29 ALT 61 Alkaline Phosphatase 65 Total Protein 7.2 Albumin 3.4 Urine Color Yellow Urine Appearance Clear Urine pH 7.0 Ur Specific [place] 1.032 Urine Protein Trace Urine Glucose (UA) Negative Urine Ketones Negative Urine Blood Negative Urine Nitrite Negative Urine Bilirubin Negative Urine Urobilinogen 0.2 Ur Leukocyte Esterase Negative RPR Titer 07/28/18 07:00 WBC RBC Hgb Hct MCV MCH MCHC RDW Plt Count MPV Sodium Potassium Chloride Carbon Dioxide Anion Gap BUN Creatinine Est GFR (CKD-EPI)AfAm Est GFR (CKD-EPI)NonAf Random Glucose Calcium Total Bilirubin AST ALT Alkaline Phosphatase Total Protein Albumin Urine Color Urine Appearance Urine pH Ur Specific [place] Urine Protein Urine Glucose (UA) Urine Ketones Urine Blood Urine Nitrite Urine Bilirubin Urine Urobilinogen Ur Leukocyte Esterase RPR Titer Nonreactive Labs reviewed: bun 22 Assessment: 07/30/18 16:16 Withdrawal symptoms Azotemia noted Plan: Continue detox Patient is scheduled for discharge tomorrow Azotemia: encouraged PO water hydration
[2018-07-30] MEDS: THIAMINE HCL 100 MG TABLET (FP) PO SCH (22:23)
[2018-07-30] MEDS: QUEtiapine FUMARATE 100 MG TABLET (FP) PO SCH (22:25)
[2018-07-31] MEDS: METHOCARBAMOL 500 MG TABLET PO PRN (00:51)
[2018-07-31] MEDS: HYDROCORTISONE 1% TOPICAL CREAM 30 GM TUBE TP SCH (06:09)
[2018-07-31] MEDS: AMOXICILLIN 500 MG CAPSULE (FP) PO SCH (06:09)
--- NOTE | 2018-07-31 09:17 | DS ---
[facility] Detox Discharge Summary Admission Date: 07/27/18 Discharge Date: 07/31/18 - History Present History: Alcohol Dependence, Cocaine Dependence, Opioid Dependence - Physical Exam Results Vital Signs: Vital Signs Temperature 97.5 F L 07/31/18 07:39 Pulse Rate 67 07/31/18 07:39 Respiratory Rate 18 07/31/18 07:39 Blood Pressure 101/75 07/31/18 07:39 O2 Sat by Pulse Oximetry (%) 98 07/29/18 10:58 - Treatment Hospital Course: Detox Protocol Followed, Detoxed Safely, Responded well, Discharged Condition Good, Rehab Referral Accepted - Medication Discharge Medications: Ambulatory Orders Amoxicillin - [Amoxicillin 500mg Capsule -] 500 mg PO TID 07/27/18 Buprenorphine/Naloxone [Suboxone 8Mg/2Mg Sl Film -] 1 each SL DAILY 07/27/18 Bupropion HCl [Wellbutrin -] 150 mg PO BID 07/27/18 Hydrocortisone 1% Cream [Hytone 1% Cream -] 1 applic TP TID 07/27/18 Quetiapine Fumarate [Seroquel -] 100 mg PO BID 07/27/18 - Diagnosis (1) Alcohol dependence with uncomplicated withdrawal Current Visit: Yes Status: Chronic (2) Cocaine dependence Current Visit: Yes Status: Chronic Qualifiers: Substance use status: uncomplicated Qualified Code(s): F14.20 - Cocaine dependence, uncomplicated (3) History of asthma Current Visit: Yes Status: Chronic (4) Nystagmus Current Visit: Yes Status: Acute (5) Substance-induced anxiety disorder Current Visit: Yes Status: Acute (6) Substance-induced sleep disorder Current Visit: Yes Status: Acute (7) Asthma Current Visit: Yes Status: Chronic Qualifiers: Asthma severity: mild Asthma persistence: unspecified Asthma complication type: unspecified Qualified Code(s): J45.909 - Unspecified asthma , uncomplicated (8) Nicotine dependence Current Visit: Yes Status: Chronic Qualifiers: Nicotine product type: cigarettes Substance use status: uncomplicated Qualified Code(s): F17.210 - Nicotine dependence, cigarettes, uncomplicated (9) PTSD (post-traumatic stress disorder) Current Visit: Yes Status: Chronic (10) Paranoid schizophrenia Current Visit: Yes Status: Chronic (11) Schizoaffective disorder Current Visit: Yes Status: Ruled-out (12) Bipolar 1 disorder Current Visit: No Status: Acute (13) Cannabis dependence, uncomplicated Current Visit: Yes Status: Acute (14) Opioid dependence Current Visit: Yes Status: Acute (15) Sedative, hypnotic or anxiolytic dependence with withdrawal, uncomplicated Current Visit: Yes Status: Acute (16) Arthritis Current Visit: No Status: Chronic (17) Mood disorder Current Visit: No Status: Chronic (18) PTSD (post-traumatic stress disorder) Current Visit: No Status: Chronic - AMA Did Patient Leave Against Medical Advice: No (pt referred to [facility])
[2018-07-31] MEDS: BUPRENORPHINE/NALOXONE 8 MG/2 MG FILM PACKET SL SCH (09:31)
[2018-07-31] MEDS: PRENATAL VITAMINS W/ FOLIC ACID TABLET (FP) PO SCH (09:31)
[2018-07-31 09:34] VITALS: BP 129/89; PULSE 64; TEMP 97.3
== END 2018-07-31 10:00 | disposition home or self-care (01) | DRG 773 ==
LOC: YASAS 17:44 → Y6N 21:36
PROVIDERS: ADMIT Surgery; ATTEND Surgery
PROC: HZ2ZZZZ Detoxification Services for Substance Abuse Treatment (ICD-10-PCS; principal; 2018-07-27)
DX: F10.230 Alcohol dependence with withdrawal, uncomplicated (principal); F11.23 Opioid dependence with withdrawal; F13.230 Sedative, hypnotic or anxiolytic dependence with withdrawal, uncomplicated; F14.20 Cocaine dependence, uncomplicated; F12.20 Cannabis dependence, uncomplicated; F17.213 Nicotine dependence, cigarettes, with withdrawal; F19.282 Other psychoactive substance dependence with psychoactive substance-induced sleep disorder; F19.280 Other psychoactive substance dependence with psychoactive substance-induced anxiety disorder; F20.0 Paranoid schizophrenia; F25.9 Schizoaffective disorder, unspecified; F43.10 Post-traumatic stress disorder, unspecified; F31.9 Bipolar disorder, unspecified; F39 Unspecified mood [affective] disorder; K62.5 Hemorrhage of anus and rectum; J45.909 Unspecified asthma, uncomplicated; H55.00 Unspecified nystagmus; B35.3 Tinea pedis; Z87.01 Personal history of pneumonia (recurrent)
CPT/HCPCS: 36415; 80053; 81003; 85027; 86593; 93005; 93010; 94640

== ENCOUNTER 2018-10-05 10:47 | Inpatient (IN) | payer OTHER | END 2018-10-08 16:06 | disposition home or self-care (01) | LOC: YASAS 10:47 → Y3N 12:32 ==

== ENCOUNTER 2019-02-05 10:22 | Inpatient (IN) | payer OTHER ==
[2019-02-05 12:27] VITALS: BMI 25.7
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
[2019-02-05] MEDS ORDERED: MENTHOL/PHENOL 1 EACH UD MM PRN (13:53)
[2019-02-05] MEDS ORDERED: MAGNESIUM CITRATE 300 ML BOTTLE PO PRN (13:53)
[2019-02-05] MEDS ORDERED: ACETAMINOPHEN 325 MG TABLET (FP) PO PRN ×2 (13:53)
[2019-02-05] MEDS ORDERED: MAGNESIUM HYDROX 2400MG/30ML ORAL SUSPENSION 30 ML CUP PO PRN (13:53)
[2019-02-05] MEDS ORDERED: METHOCARBAMOL 500 MG TABLET PO PRN (13:53)
[2019-02-05] MEDS ORDERED: MELATONIN 5 MG TABLETS PO PRN (13:53)
[2019-02-05] MEDS ORDERED: IBUPROFEN 400 MG TABLET (FP) PO PRN (13:53)
[2019-02-05] MEDS ORDERED: hydrOXYzine PAMOATE 25 MG CAPSULE (FP) PO PRN (13:53)
[2019-02-05] MEDS ORDERED: cloNIDine HCL 0.1 MG TABLET PO PRN (13:53)
[2019-02-05] MEDS ORDERED: MAG HYDROX/AL HYDROX/SIMETH 30 ML UNIT-DOSE CUP PO PRN (13:53)
[2019-02-05] MEDS ORDERED: BISMUTH SUBSALICYLATE 262 MG/15 ML BTL PO PRN (13:53)
[2019-02-05] MEDS ORDERED: LORazepam 1 MG TABLET PO PRN (13:53)
[2019-02-05] MEDS ORDERED: PERMETHRIN 5% TOPICAL CREAM 60 GM TUBE TP ONE (14:57)
[2019-02-05] MEDS ORDERED: METHADONE HCL 10 MG TABLET (FOR DETOX USE ONLY) PO ONE (15:05)
[2019-02-05] MEDS: LORazepam 2 MG TABLET PO SCH ×2 (17:40→22:32)
[2019-02-05 18:49] LABS: HEMATOCRIT 39.5 % (35.4-49); MCHC 32.9 g/dl (32.0-35.9); MEAN CELL VOLUME 88.3 fl (80-96); MEAN PLT VOLUME 8.5 fl (7.5-11.1); PLATELET COUNT 305 K/MM3 (134-434); RBC 4.47 M/mm3 (4.00-5.60); RDW 14.7 % (11.9-15.9); WHITE BLOOD COUNT 5.7 K/mm3 (4.0-10.0)
[2019-02-05 19:03] LABS: ALBUMIN 3.3 g/dl (3.4-5.0); BILIRUBIN,TOTAL 0.3 mg/dL (0.2-1); BLOOD UREA NITROGEN 16.8 mg/dL (7-18); CALCIUM 8.7 mg/dL (8.5-10.1); POTASSIUM 3.9 mmol/L (3.5-5.1); TOT PROT 6.6 g/dl (6.4-8.2)
[2019-02-05] MEDS: THIAMINE HCL 100 MG TABLET (FP) PO SCH (22:32)
[2019-02-05] MEDS: buPROPion HCL 75 MG TABLET PO SCH (22:32)
[2019-02-05] MEDS: QUEtiapine FUMARATE 50 MG TABLET PO SCH (22:32)
[2019-02-06] MEDS: LORazepam 2 MG TABLET PO SCH ×4 (08:23→23:16)
[2019-02-06] MEDS ORDERED: METHADONE HCL 5 MG TABLET (FOR DETOX USE ONLY) ONE (08:27)
[2019-02-06] MEDS ORDERED: METHADONE HCL 10 MG TABLET (FOR DETOX USE ONLY) ONE (08:27)
[2019-02-06] MEDS ORDERED: METHADONE (DETOX) 20 MG, METHADONE (DETOX) 5 MG PO ONE (10:00)
--- NOTE | 2019-02-06 10:00 | PN ---
[facility] CIWA - CIWA Score Nausea/Vomitin-Mild Nausea/No Vomiting Muscle Tremors: 4-Moderate,w/Arms Extend Anxiety: 3 Agitation: 2 Paroxysmal Sweats: 1-Minimal Palms Moist Orientation: 0-Oriented Tacttile Disturbances: 1-Very Mild Itch/Numbness Auditory Disturbances: 0-None Visual Disturbances: 0-None Headache: 1-Very Mild CIWA-Ar Total Score: 13 BHS COWS - Scale Resting Pulse: 0= [place] 80 or Below Sweatin= Chills/Flushing Restless Observation: 0= Sits Still Pupil Size: 1= Pupils >than Normal Bone or Joint Aches: 1= Mild Discomfort Runny Nose/ Eye Tearin= None GI Upset > 30mins: 2= Nausea/Diarrhea Tremor Observation of Outstretched Hands: 2= Slight Tremor Visible Yawning Observation: 1= 1-2x During Session Anxiety or Irritability: 2=Irritable/Anxious Goose Flesh Skin: 3=Piloerection COWS Score: 13 S Progress Note (SOAP) Subjective: 43 years old male admitted on 02/05/19 for alcohol and methadone detox regimen treated with ativan and methadone detox regimen patient tolerated well ate breakfast no trouble chewing swallowing tolerate food and fluid well resting in bed feeling tired Objective: 02/06/19 09:59 Vital Signs Temperature 97.3 F L 02/06/19 09:28 Pulse Rate 70 02/06/19 09:28 Respiratory Rate 18 02/06/19 09:28 Blood Pressure 129/79 02/05/19 17:48 O2 Sat by Pulse Oximetry (%) Laboratory Last Values WBC 5.7 K/mm3 (4.0-10.0) 02/05/19 14:00 RBC 4.47 M/mm3 (4.00-5.60) 02/05/19 14:00 Hgb 13.0 GM/dL (11.7-16.9) 02/05/19 14:00 Hct 39.5 % (35.4-49) 02/05/19 14:00 MCV 88.3 fl (80-96) 02/05/19 14:00 MCH 29.0 pg (25.7-33.7) 02/05/19 14:00 MCHC 32.9 g/dl (32.0-35.9) 02/05/19 14:00 RDW 14.7 % (11.9-15.9) 02/05/19 14:00 Plt Count 305 K/MM3 (134-434) 02/05/19 14:00 MPV 8.5 fl (7.5-11.1) 02/05/19 14:00 Sodium 137 mmol/L (136-145) 02/05/19 14:00 Potassium 3.9 mmol/L (3.5-5.1) 02/05/19 14:00 Chloride 107 mmol/L (98-107) 02/05/19 14:00 Carbon Dioxide 26 mmol/L (21-32) 02/05/19 14:00 Anion Gap 4 MMOL/L (8-16) L 02/05/19 14:00 BUN 16.8 mg/dL (7-18) 02/05/19 14:00 Creatinine 1.0 mg/dL (0.55-1.3) 02/05/19 14:00 Est GFR (CKD-EPI)AfAm 107.87 02/05/19 14:00 Est GFR (CKD-EPI)NonAf 93.07 02/05/19 14:00 Random Glucose 113 mg/dL (74-106) H 02/05/19 14:00 Calcium 8.7 mg/dL (8.5-10.1) 02/05/19 14:00 Total Bilirubin 0.3 mg/dL (0.2-1) 02/05/19 14:00 AST 15 U/L (15-37) 02/05/19 14:00 ALT 30 U/L (13-61) 02/05/19 14:00 Alkaline Phosphatase 57 U/L (45-117) 02/05/19 14:00 Total Protein 6.6 g/dl (6.4-8.2) 02/05/19 14:00 Albumin 3.3 g/dl (3.4-5.0) L 02/05/19 14:00 RPR Titer Nonreactive (NONREACTIVE) 02/05/19 14:00 lab noted Assessment: 02/06/19 09:59 alcohol and opiate withdrawal sx Plan: continue ativan and methadone detox regimen
--- NOTE | 2019-02-06 11:31 | PN ---
S Progress Note Note: Psychiatry Attending's note : Contacted by nurse Elvia Saenz. Case discussed. Concern : sedation. Wellbutrin + seroquel withdrawn (temporarily). Will follow.
[2019-02-06] MEDS: QUEtiapine FUMARATE 50 MG TABLET PO SCH (12:30)
[2019-02-06] MEDS: buPROPion HCL 75 MG TABLET PO SCH (12:30)
[2019-02-06] MEDS: PRENATAL VITAMINS W/ FOLIC ACID TABLET (FP) PO SCH (13:52)
[2019-02-06] MEDS: NICOTINE 14 MG/24 HOURS TOPICAL PATCH TD SCH (13:53)
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
[2019-02-06] MEDS: THIAMINE HCL 100 MG TABLET (FP) PO SCH (23:16)
[2019-02-07] MEDS: LORazepam 1 MG TABLET PO SCH ×4 (06:03→22:14)
[2019-02-07] MEDS ORDERED: METHADONE HCL 10 MG TABLET (FOR DETOX USE ONLY) PO ONE (10:00)
[2019-02-07] MEDS: PRENATAL VITAMINS W/ FOLIC ACID TABLET (FP) PO SCH (10:26)
[2019-02-07] MEDS: NICOTINE 14 MG/24 HOURS TOPICAL PATCH TD SCH (10:27)
--- NOTE | 2019-02-07 13:18 | PN ---
[facility] CIWA - CIWA Score Nausea/Vomitin-Mild Nausea/No Vomiting Muscle Tremors: 3 Anxiety: 2 Agitation: 1-Slight > Activity Paroxysmal Sweats: 2 Orientation: 0-Oriented Tacttile Disturbances: 0-None Auditory Disturbances: 0-None Visual Disturbances: 0-None Headache: 1-Very Mild CIWA-Ar Total Score: 10 BHS COWS - Scale Resting Pulse: 1= [place] 81-100 Sweatin= Chills/Flushing Restless Observation: 0= Sits Still Pupil Size: 1= Pupils >than Normal Bone or Joint Aches: 1= Mild Discomfort Runny Nose/ Eye Tearin= Nasal Congestion GI Upset > 30mins: 2= Nausea/Diarrhea Tremor Observation of Outstretched Hands: 1= Tremor [place], Not Seen Yawning Observation: 1= 1-2x During Session Anxiety or Irritability: 1=Feels Anxious/Irritable Goose Flesh Skin: 0=Smooth Skin COWS Score: 10 S Progress Note (SOAP) Subjective: 43 years old male admitted on 02/05/19 for alcohol and opiate withdrawal sx management treated with ativan and methadone detox regimen feeling tired resting on bed discuss medication assisted treatment program 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 Objective: 02/07/19 13:19 Vital Signs Temperature 97.4 F L 02/07/19 09:19 Pulse Rate 87 02/07/19 09:19 Respiratory Rate 18 02/07/19 09:19 Blood Pressure 106/58 L 02/07/19 09:19 O2 Sat by Pulse Oximetry (%) Laboratory Last Values WBC 5.7 K/mm3 (4.0-10.0) 02/05/19 14:00 RBC 4.47 M/mm3 (4.00-5.60) 02/05/19 14:00 Hgb 13.0 GM/dL (11.7-16.9) 02/05/19 14:00 Hct 39.5 % (35.4-49) 02/05/19 14:00 MCV 88.3 fl (80-96) 02/05/19 14:00 MCH 29.0 pg (25.7-33.7) 02/05/19 14:00 MCHC 32.9 g/dl (32.0-35.9) 02/05/19 14:00 RDW 14.7 % (11.9-15.9) 02/05/19 14:00 Plt Count 305 K/MM3 (134-434) 02/05/19 14:00 MPV 8.5 fl (7.5-11.1) 02/05/19 14:00 Sodium 137 mmol/L (136-145) 02/05/19 14:00 Potassium 3.9 mmol/L (3.5-5.1) 02/05/19 14:00 Chloride 107 mmol/L (98-107) 02/05/19 14:00 Carbon Dioxide 26 mmol/L (21-32) 02/05/19 14:00 Anion Gap 4 MMOL/L (8-16) L 02/05/19 14:00 BUN 16.8 mg/dL (7-18) 02/05/19 14:00 Creatinine 1.0 mg/dL (0.55-1.3) 02/05/19 14:00 Est GFR (CKD-EPI)AfAm 107.87 02/05/19 14:00 Est GFR (CKD-EPI)NonAf 93.07 02/05/19 14:00 Random Glucose 113 mg/dL (74-106) H 02/05/19 14:00 Calcium 8.7 mg/dL (8.5-10.1) 02/05/19 14:00 Total Bilirubin 0.3 mg/dL (0.2-1) 02/05/19 14:00 AST 15 U/L (15-37) 02/05/19 14:00 ALT 30 U/L (13-61) 02/05/19 14:00 Alkaline Phosphatase 57 U/L (45-117) 02/05/19 14:00 Total Protein 6.6 g/dl (6.4-8.2) 02/05/19 14:00 Albumin 3.3 g/dl (3.4-5.0) L 02/05/19 14:00 RPR Titer Nonreactive (NONREACTIVE) 02/05/19 14:00 lab noted Assessment: alcohol and opiate withdrawal sx Plan: continue ativan and methadone detox regimen
[2019-02-07] MEDS: THIAMINE HCL 100 MG TABLET (FP) PO SCH (22:14)
[2019-02-08] MEDS ORDERED: LORazepam 0.5 MG TABLET PO PRN
[2019-02-08] MEDS: LORazepam 0.5 MG TABLET PO SCH ×4 (05:50→22:31)
[2019-02-08] MEDS ORDERED: METHADONE HCL 5 MG TABLET (FOR DETOX USE ONLY) ONE (08:20)
[2019-02-08] MEDS ORDERED: METHADONE HCL 10 MG TABLET (FOR DETOX USE ONLY) ONE (08:20)
[2019-02-08] MEDS ORDERED: METHADONE (DETOX) 10 MG, METHADONE (DETOX) 5 MG PO ONE (10:00)
[2019-02-08] MEDS: NICOTINE 14 MG/24 HOURS TOPICAL PATCH TD SCH (10:46)
[2019-02-08] MEDS: PRENATAL VITAMINS W/ FOLIC ACID TABLET (FP) PO SCH (10:46)
--- NOTE | 2019-02-08 10:46 | PN ---
S CIWA - CIWA Score Nausea/Vomitin-Mild Nausea/No Vomiting Muscle Tremors: 2 Anxiety: 2 Agitation: 2 Paroxysmal Sweats: 1-Minimal Palms Moist Orientation: 0-Oriented Tacttile Disturbances: 0-None Auditory Disturbances: 0-None Visual Disturbances: 0-None Headache: 0-None Present CIWA-Ar Total Score: 8 BHS COWS - Scale Resting Pulse: 1= [place] 81-100 Sweatin= Chills/Flushing Restless Observation: 0= Sits Still Pupil Size: 0= Normal to Room Light Bone or Joint Aches: 1= Mild Discomfort Runny Nose/ Eye Tearin= Nasal Congestion GI Upset > 30mins: 2= Nausea/Diarrhea Tremor Observation of Outstretched Hands: 1= Tremor [place], Not Seen Yawning Observation: 0= None Anxiety or Irritability: 1=Feels Anxious/Irritable Goose Flesh Skin: 0=Smooth Skin COWS Score: 8 BHS Progress Note (SOAP) Subjective: 43 years old male admitted on 02/05/19 for alcohol and opiate withdrawal sx management treated with ativan and methadone detox regimen patient is alert oriented x 3 ambulating from bed to bathroom steady gait ate breakfast resting on bed feeling tired encourage to attend meetings and groups Objective: 02/08/19 10:47 Vital Signs Temperature 97.3 F L 02/08/19 09:10 Pulse Rate 84 02/08/19 09:10 Respiratory Rate 18 02/08/19 09:10 Blood Pressure 128/73 02/08/19 09:10 O2 Sat by Pulse Oximetry (%) Laboratory Last Values WBC 5.7 K/mm3 (4.0-10.0) 02/05/19 14:00 RBC 4.47 M/mm3 (4.00-5.60) 02/05/19 14:00 Hgb 13.0 GM/dL (11.7-16.9) 02/05/19 14:00 Hct 39.5 % (35.4-49) 02/05/19 14:00 MCV 88.3 fl (80-96) 02/05/19 14:00 MCH 29.0 pg (25.7-33.7) 02/05/19 14:00 MCHC 32.9 g/dl (32.0-35.9) 02/05/19 14:00 RDW 14.7 % (11.9-15.9) 02/05/19 14:00 Plt Count 305 K/MM3 (134-434) 02/05/19 14:00 MPV 8.5 fl (7.5-11.1) 02/05/19 14:00 Sodium 137 mmol/L (136-145) 02/05/19 14:00 Potassium 3.9 mmol/L (3.5-5.1) 02/05/19 14:00 Chloride 107 mmol/L (98-107) 02/05/19 14:00 Carbon Dioxide 26 mmol/L (21-32) 02/05/19 14:00 Anion Gap 4 MMOL/L (8-16) L 02/05/19 14:00 BUN 16.8 mg/dL (7-18) 02/05/19 14:00 Creatinine 1.0 mg/dL (0.55-1.3) 02/05/19 14:00 Est GFR (CKD-EPI)AfAm 107.87 02/05/19 14:00 Est GFR (CKD-EPI)NonAf 93.07 02/05/19 14:00 Random Glucose 113 mg/dL (74-106) H 02/05/19 14:00 Calcium 8.7 mg/dL (8.5-10.1) 02/05/19 14:00 Total Bilirubin 0.3 mg/dL (0.2-1) 02/05/19 14:00 AST 15 U/L (15-37) 02/05/19 14:00 ALT 30 U/L (13-61) 02/05/19 14:00 Alkaline Phosphatase 57 U/L (45-117) 02/05/19 14:00 Total Protein 6.6 g/dl (6.4-8.2) 02/05/19 14:00 Albumin 3.3 g/dl (3.4-5.0) L 02/05/19 14:00 RPR Titer Nonreactive (NONREACTIVE) 02/05/19 14:00 lab noted Assessment: 02/08/19 10:47 alcohol and opiate withdrawal sx Plan: continue ativan and methadone detox regimen
[2019-02-08] MEDS: THIAMINE HCL 100 MG TABLET (FP) PO SCH (22:31)
[2019-02-09] MEDS ORDERED: LORazepam 0.5 MG TABLET PO ONE (05:00)
[2019-02-09] MEDS: PRENATAL VITAMINS W/ FOLIC ACID TABLET (FP) PO SCH (09:57)
[2019-02-09] MEDS: NICOTINE 14 MG/24 HOURS TOPICAL PATCH TD SCH (09:58)
[2019-02-09] MEDS ORDERED: METHADONE HCL 10 MG TABLET (FOR DETOX USE ONLY) PO ONE (10:00)
--- NOTE | 2019-02-09 13:01 | PN ---
[facility] CIWA - CIWA Score Nausea/Vomitin-No Nausea/No Vomiting Muscle Tremors: 1-None Visible, but Mullin Anxiety: 1-Mildly Anxious Agitation: 1-Slight > Activity Paroxysmal Sweats: 2 Orientation: 0-Oriented Tacttile Disturbances: 2-Mild Itch/Numbness/Burn Auditory Disturbances: 0-None Visual Disturbances: 0-None Headache: 0-None Present CIWA-Ar Total Score: 7 S COWS - Scale Resting Pulse: 0= [place] 80 or Below Sweatin= Chills/Flushing Restless Observation: 1= Difficult to Sit Still Pupil Size: 1= Pupils >than Normal Bone or Joint Aches: 2= Severe Diffuse Aches Runny Nose/ Eye Tearin= None GI Upset > 30mins: 0= None Tremor Observation of Outstretched Hands: 1= Tremor Mullin, Not Seen Yawning Observation: 0= None Anxiety or Irritability: 1=Feels Anxious/Irritable Goose Flesh Skin: 0=Smooth Skin COWS Score: 7 [facility] Progress Note (SOAP) Subjective: inteerrupted sleep, sweats shakes , lbp Objective: 02/09/19 12:59 Vital Signs Temperature 97.1 F L 02/09/19 12:53 Pulse Rate 74 02/09/19 12:53 Respiratory Rate 18 02/09/19 12:53 Blood Pressure 144/82 02/09/19 12:53 O2 Sat by Pulse Oximetry (%) Laboratory Tests 02/05/19 02/05/19 02/05/19 14:00 14:00 14:00 WBC 5.7 RBC 4.47 Hgb 13.0 Hct 39.5 MCV 88.3 MCH 29.0 MCHC 32.9 RDW 14.7 Plt Count 305 MPV 8.5 Sodium 137 Potassium 3.9 Chloride 107 Carbon Dioxide 26 Anion Gap 4 L BUN 16.8 Creatinine 1.0 Est GFR (CKD-EPI)AfAm 107.87 Est GFR (CKD-EPI)NonAf 93.07 Random Glucose 113 H Calcium 8.7 Total Bilirubin 0.3 AST 15 ALT 30 Alkaline Phosphatase 57 Total Protein 6.6 Albumin 3.3 L RPR Titer Nonreactive pt aox3 in nad lying in bed Assessment: 02/09/19 13:00 withdrawal sx's Plan: cont. detox increase fluids motrin prn d/c in am,
[2019-02-09] MEDS: THIAMINE HCL 100 MG TABLET (FP) PO SCH (21:59)
[2019-02-09] MEDS ORDERED: QUEtiapine FUMARATE 100 MG TABLET (FP) PO SCH (22:00)
[2019-02-10] MEDS ORDERED: METHADONE HCL 5 MG TABLET (FOR DETOX USE ONLY) PO ONE (06:00)
[2019-02-10 09:36] VITALS: BP 122/79; PULSE 87; TEMP 97.7
[2019-02-10] MEDS: PRENATAL VITAMINS W/ FOLIC ACID TABLET (FP) PO SCH (10:13)
[2019-02-10] MEDS: NICOTINE 14 MG/24 HOURS TOPICAL PATCH TD SCH (10:13)
--- NOTE | 2019-02-10 13:07 | DS ---
[facility] Detox Discharge Summary Admission Date: 02/05/19 Discharge Date: 02/10/19 - History Present History: Alcohol Dependence, Cocaine Dependence, Opioid Dependence Additional Comments: Pt is medically cleared and is discharged to [facility] for continued management. Pt is encouraged to complete rehab protocol and also follow-up with outpatient CD program and also to follow-up with his pmd after discharge from the rehab. Pt verbalized understanding. Pt is alert and oriented x3 and in no acute respiratory distress. Pertinent Past History: h/o asthma, alcohol, heroin, and cocaine use disorder. - Physical Exam Results Vital Signs: Vital Signs Temperature 97.7 F 02/10/19 09:36 Pulse Rate 87 02/10/19 09:36 Respiratory Rate 18 02/10/19 09:36 Blood Pressure 122/79 02/10/19 09:36 O2 Sat by Pulse Oximetry (%) Pertinent Admission Physical Exam Findings: withdrawal symptoms. - Treatment Hospital Course: Detox Protocol Followed, Detoxed Safely, Responded well, Discharged Condition Good, Rehab Referral Accepted Patient has Accepted a Rehab Referral to: [facility]. - Medication Discharge Medications: Ambulatory Orders Bupropion HCl [Wellbutrin -] 150 mg PO BID 07/27/18 Quetiapine Fumarate [Seroquel -] 100 mg PO HS 07/27/18 Naloxone HCl [Narcan] 4 mg NS ASDIR PRN #1 spray 02/06/19 - Diagnosis (1) Alcohol dependence with uncomplicated withdrawal Status: Acute (2) Arthritis Status: Chronic (3) Asthma Status: Chronic Qualifiers: Asthma severity: mild Asthma persistence: intermittent Asthma complication type: with status asthmaticus Qualified Code(s): J45.22 - Mild intermittent asthma with status asthmaticus (4) Cocaine dependence Status: Chronic Qualifiers: Substance use status: uncomplicated Qualified Code(s): F14.20 - Cocaine dependence, uncomplicated (5) History of asthma Status: Chronic (6) Nicotine dependence Status: Chronic Qualifiers: Nicotine product type: cigarettes Substance use status: in withdrawal Qualified Code(s): F17.213 - Nicotine dependence, cigarettes, with withdrawal (7) Opioid dependence Status: Chronic Qualifiers: Substance use status: uncomplicated Qualified Code(s): F11.20 - Opioid dependence, uncomplicated - AMA Did Patient Leave Against Medical Advice: No [facility] CIWA - CIWA Score Nausea/Vomitin-No Nausea/No Vomiting Muscle Tremors: None Anxiety: 2 Agitation: 0-Normal Activity Paroxysmal Sweats: 1-Minimal Palms Moist Orientation: 0-Oriented Tacttile Disturbances: 0-None Auditory Disturbances: 0-None Visual Disturbances: 0-None Headache: 0-None Present CIWA-Ar Total Score: 3 [facility] COWS - Scale Resting Pulse: 1= [place] 81-100 Sweatin= Chills/Flushing Restless Observation: 0= Sits Still Pupil Size: 0= Normal to Room Light Bone or Joint Aches: 0= None Runny Nose/ Eye Tearin= None GI Upset > 30mins: 0= None Tremor Observation of Outstretched Hands: 0= None Yawning Observation: 0= None Anxiety or Irritability: 1=Feels Anxious/Irritable Goose Flesh Skin: 0=Smooth Skin COWS Score: 3
== END 2019-02-10 10:57 | disposition other institution (70) | DRG 773 ==
LOC: YASAS 10:22 → Y3N 15:03
PROVIDERS: ADMIT Allergy & Immunology; ATTEND Allergy & Immunology
PROC: HZ2ZZZZ Detoxification Services for Substance Abuse Treatment (ICD-10-PCS; principal; 2019-02-05)
DX: F10.230 Alcohol dependence with withdrawal, uncomplicated (principal); F11.23 Opioid dependence with withdrawal; F14.20 Cocaine dependence, uncomplicated; F20.0 Paranoid schizophrenia; F31.9 Bipolar disorder, unspecified; F19.24 Other psychoactive substance dependence with psychoactive substance-induced mood disorder; J45.22 Mild intermittent asthma with status asthmaticus; Z91.013 Allergy to seafood; Z91.018 Allergy to other foods; Z91.5 Personal history of self-harm
CPT/HCPCS: 36415; 80053; 85027; 86593

== ENCOUNTER 2019-02-10 11:00 | Inpatient (IN) | payer OTHER ==
[2019-02-10] MEDS ORDERED: MAG HYDROX/AL HYDROX/SIMETH 30 ML UNIT-DOSE CUP PO PRN (13:15)
[2019-02-10] MEDS ORDERED: MENTHOL/PHENOL 1 EACH UD MM PRN (13:15)
[2019-02-10] MEDS ORDERED: P-EPHED 60MG/TRIPROLIDI 2.5MG TABLET PO PRN (13:15)
[2019-02-10] MEDS ORDERED: MAGNESIUM CITRATE 300 ML BOTTLE PO PRN (13:15)
[2019-02-10] MEDS ORDERED: IBUPROFEN 400 MG TABLET (FP) PO PRN (13:15)
[2019-02-10] MEDS ORDERED: MAGNESIUM HYDROX 2400MG/30ML ORAL SUSPENSION 30 ML CUP PO PRN (13:15)
[2019-02-10] MEDS ORDERED: LOPERAMIDE HCL 2 MG CAPSULE PO PRN (13:15)
[2019-02-10] MEDS ORDERED: guaiFENesin 200 MG/10 ML 10 ML UNIT-DOSE CUPS PO PRN (13:15)
[2019-02-10] MEDS ORDERED: ACETAMINOPHEN 325 MG TABLET (FP) PO PRN (13:15)
--- NOTE | 2019-02-10 13:15 | HP ---
[facility] Rehab Assess/Revision - Admission History Admitted to Rehab from: [facility] Date of Admission to Rehab: 02/10/2019 - Vital signs Vital Signs: Vital Signs Period Temp Pulse Resp BP Sys/Smith Pulse Ox Last 24 Hr 98 F 87 18 123/68 Vital Signs 02/10/19 11:06 Temperature 98 F Pulse Rate 87 Respiratory 18 Rate Blood Pressure 123/68 - Findings Detox History & Physical reviewed: Yes Concur with findings: Yes Inpatient Rehab Admission - Rehab Decision to Admit Inpatient rehab admission?: Yes - Initial Determination Are CD services needed?: Yes Free of communicable disease: Yes Not in need of hospitalization: Yes - Rehab Admission Criteria Previous failed treatment: Yes Poor recovery environment: Yes Comorbidities: Yes Lacks judgement: No Patient is meeting Inpatient Rehab admission criteria:: Yes
--- NOTE | 2019-02-10 17:59 | PN ---
[facility] Progress Note Note: Psychiatry Attending's note : Transferred today to [address] Day 1 of rehabilitative care. Patient seen. Doing well. Observed as alert and fully oriented. Ambulatory. Steady gait. Well groomed. Active. Mr Chi wishes to resume his medications. Plan : Welllbutri XL 150 mg po daily Seroquel 100 mg po hs Resumed at patient's request. Side effects/benefits discussed with patient. Mr Chi gave verbal consent to MD. Psychiatry-Liaison will follow (on request).
[2019-02-10] MEDS: THIAMINE HCL 100 MG TABLET (FP) PO SCH (22:08)
[2019-02-10] MEDS: QUEtiapine FUMARATE 100 MG TABLET (FP) PO SCH (22:08)
[2019-02-11] MEDS: PRENATAL VITAMINS W/ FOLIC ACID TABLET (FP) PO SCH (09:19)
[2019-02-11] MEDS: NICOTINE 14 MG/24 HOURS TOPICAL PATCH TD SCH (09:19)
[2019-02-11] MEDS: QUEtiapine FUMARATE 100 MG TABLET (FP) PO SCH (21:21)
[2019-02-11] MEDS: MELATONIN 5 MG TABLETS PO PRN (21:21)
[2019-02-11] MEDS: THIAMINE HCL 100 MG TABLET (FP) PO SCH (21:21)
--- NOTE | 2019-02-12 10:09 | PN ---
[facility] Progress Note Note: PATIENT TREATED FOR SCABIES WHEN ADMITTED, HOWEVER HE STATES HE STILL HAS ITCHING AND DID NOT APPLY CREAM ALL OVER HIS BODY INDICATED. STATES HIS COULD NOT REACH HIS BACK AND THEREFORE NO CREAM APPLIED. Vital Signs Temperature 97.8 F 02/12/19 07:08 Pulse Rate 79 02/12/19 07:08 Respiratory Rate 18 02/12/19 07:08 Blood Pressure 127/71 02/12/19 07:08 O2 Sat by Pulse Oximetry (%) PE: ALERT AND ORIENTED X 3 +PERRLA EOMS INTACT BL SKIN WARM AND DRY, OLD SCARS ON UPPER EXTREMITIES NO VISIBLE BURROWS OR INSECTS PALMS OF HANDS DRY/CRACKED AMB AD LONI A/P: HX OF SCABIES DUE TO INCORRECT APPLICATION OF FIRST ELIMITE DOSE, WILL ORDER ANOTHER TREATMENT EUCERIN CREAM TO HANDS MONITOR CLINICALLY
[2019-02-12] MEDS: PRENATAL VITAMINS W/ FOLIC ACID TABLET (FP) PO SCH (10:20)
[2019-02-12] MEDS: NICOTINE 14 MG/24 HOURS TOPICAL PATCH TD SCH (10:20)
[2019-02-12] MEDS ORDERED: PERMETHRIN 5% TOPICAL CREAM 60 GM TUBE TP ONE (10:46)
[2019-02-12] MEDS: MINERAL OIL/PETROLAT/WATER TOPICAL CREAM 113 GM JAR TP SCH ×2 (11:21→21:26)
[2019-02-12] MEDS: THIAMINE HCL 100 MG TABLET (FP) PO SCH (21:26)
[2019-02-12] MEDS: MELATONIN 5 MG TABLETS PO PRN (21:26)
[2019-02-12] MEDS: QUEtiapine FUMARATE 100 MG TABLET (FP) PO SCH (21:26)
[2019-02-13 06:37] VITALS: TEMP 97.9
[2019-02-13] MEDS: PRENATAL VITAMINS W/ FOLIC ACID TABLET (FP) PO SCH (09:36)
[2019-02-13] MEDS: MINERAL OIL/PETROLAT/WATER TOPICAL CREAM 113 GM JAR TP SCH ×2 (09:36→21:44)
[2019-02-13] MEDS: NICOTINE 14 MG/24 HOURS TOPICAL PATCH TD SCH (09:37)
[2019-02-13] MEDS: QUEtiapine FUMARATE 100 MG TABLET (FP) PO SCH (21:43)
[2019-02-13] MEDS: THIAMINE HCL 100 MG TABLET (FP) PO SCH (21:43)
[2019-02-13] MEDS: MELATONIN 5 MG TABLETS PO PRN (21:43)
[2019-02-14 07:11] VITALS: BP 120/84; PULSE 94
[2019-02-14] MEDS: PRENATAL VITAMINS W/ FOLIC ACID TABLET (FP) PO SCH (09:56)
[2019-02-14] MEDS: NICOTINE 14 MG/24 HOURS TOPICAL PATCH TD SCH (09:57)
[2019-02-14] MEDS: MINERAL OIL/PETROLAT/WATER TOPICAL CREAM 113 GM JAR TP SCH (10:45)
[2019-02-14] MEDS ORDERED: COLLOIDAL OATMEAL 1 BAR EACH TP PRN (10:54)
[2019-02-14] MEDS ORDERED: NICOTINE POLACRILEX 4 MG GUM BUC PRN (10:55)
--- NOTE | 2019-02-14 15:51 | DS ---
[facility] Rehab Discharge Summary - [facility] Rehab Discharge Summary Admission Date: 02/10/19 Discharge Date: 02/14/19 - History Present History: Alcohol dependence, Opioid dependence - Discharge Physical Exam Vital Signs: Vital Signs Temperature 97.9 F 02/14/19 07:10 Pulse Rate 94 H 02/14/19 07:10 Respiratory Rate 20 02/14/19 07:10 Blood Pressure 120/84 02/14/19 07:10 O2 Sat by Pulse Oximetry (%) - Treatment Discharge Condition: Discharge condition good - Medication Discharge Medications: Ambulatory Orders Bupropion HCl [Wellbutrin -] 150 mg PO BID 07/27/18 Quetiapine Fumarate [Seroquel -] 100 mg PO HS 07/27/18 Naloxone HCl [Narcan] 4 mg NS ASDIR PRN #1 spray 02/06/19 - Medication-Assisted Treatment (MAT) Medication-Assisted Treatment (MAT): No - Discharge Instructions Diet, activity, other medical instructions: Diet: Activity: Other medical instructions: - Diagnosis (1) Bipolar 1 disorder Current Visit: No Status: Chronic (2) Nystagmus Current Visit: No Status: Chronic (3) Sedative, hypnotic or anxiolytic dependence with withdrawal, uncomplicated Current Visit: Yes Status: Chronic (4) Arthritis Current Visit: Yes Status: Chronic (5) Asthma Current Visit: No Status: Chronic Qualifiers: Asthma severity: mild Asthma persistence: intermittent (6) Cocaine dependence Current Visit: Yes Status: Chronic Qualifiers: (7) Nicotine dependence Current Visit: No Status: Chronic Qualifiers: (8) Scabies Current Visit: Yes Status: Acute - Follow-up Referral Minutes to complete discharge: 20 - AMA Did Patient Leave Against Medical Advice: No Additional Comments: Early d/c. Wants to leave because of personal problems
== END 2019-02-14 16:00 | disposition home or self-care (01) | DRG 772 ==
LOC: YASAS 11:00 → Y3W 11:01
PROVIDERS: ADMIT Neuromusculoskeletal Medicine & OMM; ATTEND Neuromusculoskeletal Medicine & OMM
PROC: HZ42ZZZ Group Counseling for Substance Abuse Treatment, Cognitive-Behavioral (ICD-10-PCS; principal; 2019-02-10)
DX: F10.20 Alcohol dependence, uncomplicated (principal); F11.20 Opioid dependence, uncomplicated; F13.20 Sedative, hypnotic or anxiolytic dependence, uncomplicated; F14.20 Cocaine dependence, uncomplicated; F17.210 Nicotine dependence, cigarettes, uncomplicated; F31.89 Other bipolar disorder; J45.20 Mild intermittent asthma, uncomplicated; M12.9 Arthropathy, unspecified; H55.00 Unspecified nystagmus; B86 Scabies; Z91.013 Allergy to seafood; Z91.018 Allergy to other foods